=== PATIENT | male | born 1945 | race Hispanic/Latino ===

== ENCOUNTER 2017-08-26 11:54 | Emergency (ER) | payer OTHER ==
[~2017-08-26] VITALS: Ht 172.7 cm; Wt 69.3 kg
[2017-08-26 12:48] LABS: INTER. NORMALIZED RATIO 3.5; PROTHROMBIN TIME 39.9 SEC (10.2-12.9)
[2017-08-26 12:51] LABS: PTT 43.3 SEC (25-37)
[2017-08-26 15:20] VITALS: BP 150/79
[2017-08-26 15:37] LABS: HEMATOCRIT 30.5 % (38.0-50.0); MCH 30.9 PG (29.0-34.0); MCHC 36.7 G/DL (30.0-36.0); NRBC (%) 1.2 /100 WBC (0-0); PLATELET COUNT 192 K/uL (156-360); RBC DIS.WIDTH-CV 15.4 % (11.8-14.6); RBC DIS.WIDTH-SD 45.7 % (39-53); RED BLOOD COUNT 3.63 M/uL (4.00-5.50); WHITE BLOOD COUNT 6.6 K/uL (4.1-10.2)
[2017-08-26 15:42] LABS: ANION GAP 5 MEQ/L (2-14); CHLORIDE 105 MEQ/L (99-109); POTASSIUM 4.4 MEQ/L (3.7-5.4); SAMPLE HEMOLYSIS CHECK 0; SAMPLE ICTERIC CHECK 0; SAMPLE LIPEMIA CHECK 0; SODIUM 139 MEQ/L (136-147)
[2017-08-26 15:48] LABS: GFR ESTIMATE (CALCULATED) > 59 mL/min/; GLUCOSE 99 mg/dL (70-99); UREA NITROGEN (BUN) 11 mg/dL (9-23)
== END 2017-08-26 15:21 | disposition home or self-care (01) ==
LOC: EME 11:54
PROVIDERS: Physician Assistant
DX: Z76.0 Encounter for issue of repeat prescription (principal); T45.515A Adverse effect of anticoagulants, initial encounter; Z79.01 Long term (current) use of anticoagulants; I10 Essential (primary) hypertension; Z86.711 Personal history of pulmonary embolism
CPT/HCPCS: 80048; 85027; 85610; 85730; 99281; 99284